=== PATIENT | female | born 1985 | race Caucasian/White ===

== ENCOUNTER → 2020-06-28 15:28 | Outpatient (BNVA) | payer OTHER, SELFPAY | PROVIDERS: Family Provider Family Medicine; Visit Provider Nurse Practitioner Family | DX: Z11.59 Encounter for screening for other viral diseases (principal) | CPT/HCPCS: 87635 ==

== ENCOUNTER 2021-04-10 08:02 | Outpatient (CLI) | payer OTHER, SELFPAY ==
[2021-04-10 08:36] LABS: SARS Covid-2 Antigen Positive (Negative)
--- NOTE | 2021-04-11 08:05 | A.OFFVIS_ITS ---
Patient Information Symptom onset date: 04/09/21 COVID 19 common symptoms: positive fatigue, body aches and headache(s) Severity: mild Treatment prior to arrival: none Other details: vaccinated [facility] COVID test results: SARS-CoV-2 Antigen (Rapid) Positive (Negative) H 04/10/21 08:00 04/10/21 SARS-CoV-2 RNA (RT-PCR) Not detected (NOT DETECTED) 06/28/20 15:28 06/28/20 Criteria/Plan Inclusion/Exclusion Criteria age >/= 12 years, weight >/= 40kg /88lbs, symptom onset less than 10 days ago and + direct Sars-Cov-2 test less than 7-10 days ago Other medical condition or factor that puts patient at risk for severe COVID not requiring hospitalization, not requiring oxygen (if not chronically on ox ygen) and no increase oxygen requirement (if chronically on oxygen) Patient education patient/caregiver received/reviewed fact sheet, Emergency Use Authorization/unapproved drug status discussed with patient/caregiver, alternatives to this treatment discussed with patient/caregiver, risks and benefits of medication reviewed with patient/caregiver, patient/caregiver given opportunity for questions, which were answered and patient/caregiver consents to receiving Monoclonal Antibody Treatment Plan for treatment Meets criteria for Monoclonal Antibody infusion Ordering Monoclonal Antibody infusion for today
== END 2021-04-10 08:03 | disposition home or self-care (01) ==
PROVIDERS: PCP Family Medicine; Visit Provider Family Medicine
DX: R09.89 Other specified symptoms and signs involving the circulatory and respiratory systems (principal); Z20.822 Contact with and (suspected) exposure to COVID-19
CPT/HCPCS: 87426

== ENCOUNTER 2021-04-11 12:47 | Outpatient (CLI) | payer OTHER, SELFPAY ==
[2021-04-11 13:11] VITALS: BP 118/77; PULSE 90; RESP 16; TEMP 36.9; O2SAT 97
[2021-04-11 13:25] VITALS: BP 111/67; PULSE 85; RESP 16; TEMP 36.8; O2SAT 98
[2021-04-11 14:20] VITALS: BP 112/74; PULSE 85; RESP 17; TEMP 36.8; O2SAT 98
== END 2021-04-11 12:48 | disposition home or self-care (01) ==
LOC: OPS 12:50
PROVIDERS: PCP Family Medicine; Visit Provider Hospitalist
DX: U07.1 COVID-19 (principal)
CPT/HCPCS: 96365

== ENCOUNTER 2021-10-30 10:46 | Outpatient (CLI) | payer OTHER, SELFPAY ==
--- NOTE | 2021-10-30 10:48 | MM_ITS ---
WS: [id number] BILATERAL DIGITAL DIAGNOSTIC MAMMOGRAM MAMMOGRAPHY WITH CAD CLINICAL INFORMATION: LT BREAST LUMP COMPARISON: None. TECHNIQUE: Bilateral CC, MLO, and ML views. FINDINGS: The breasts are composed of heterogeneous fibroglandular density, which can limit the detection of sm all underlying mass lesions. Palpable marker upper outer LEFT breast. Slightly asymmetric dense under lying parenchymal tissue in this area. Ultrasound is pending. RIGHT breast is unremarkable. ULTRASOUND BREAST LEFT TECHNIQUE: Ultrasound left breast focused area of concern. CLINICAL INFORMATION: LT BREAST LUMP COMPARISON: None. FINDINGS: Ultrasound LEFT breast at the 2:00 position 4 cm from the nipple in the area of patient direction. De nse underlying parenchymal tissue in the area of concern. No cystic or solid lesions. No suspicious f indings. No lesions to target for biopsy. MM/[place] [id number] IMPRESSION: BI-RADS: 2-Benign FOLLOW UP: Age 41 Recommend annual screening mammography age 40.
== END 2021-10-30 10:47 | disposition home or self-care (01) ==
PROVIDERS: PCP Family Medicine; Visit Provider Nurse Practitioner Family
DX: N63.21 Unspecified lump in the left breast, upper outer quadrant (principal)
CPT/HCPCS: 76642; 77066